=== PATIENT | female | born 1975 | race African-American/Black ===

== ENCOUNTER 2023-01-08 09:53 | Emergency (ER) | payer BC, OTHER, SELFPAY ==
[2023-01-08] MEDS ORDERED: EMTRICITABINE 200MG/TENOFOVIR 300MG PO ONE (10:22)
[2023-01-08] MEDS ORDERED: RALTEGRAVIR POTASSIUM 400 MG TAB PO ONE (10:22)
[2023-01-08 10:23] VITALS: BP 105/67; PULSE 79; RESP 16; TEMP 98; BMI 27.4
[2023-01-08] MEDS ORDERED: DIPHTH,PERTUSS(ACELL),TET 0.5 ML DISP.SYRIN IM ONE ×2 (10:35→10:42)
[2023-01-08] MEDS ORDERED: HIV POST EXPOSURE PROPHYLAXIS KIT PO ONE (10:36)
[2023-01-08 11:59] LABS: HEMOGLOBIN 13.2 G/dL (10.7-15.3); MCH 28.4 pg (25.7-33.7); MEAN CELL VOLUME 86.2 fl (80-96); MEAN PLT VOLUME 6.9 fl (7.5-11.1); PLATELET COUNT 312.4 10^3/uL (134-434); RBC 4.64 10^6/uL (3.60-5.2); RDW 15.2 % (11.6-15.6); WHITE BLOOD COUNT 5.8 10^3/uL (4.0-10.8)
[2023-01-08 12:06] LABS: ALBUMIN 4.2 g/dl (3.4-5.0); BILIRUBIN,TOTAL 0.5 mg/dl (0.2-1); BLOOD UREA NITROGEN 10.5 mg/dl (7-18); CALCIUM 9.2 mg/dl (8.5-10.1); POTASSIUM 4.2 mmol/L (3.5-5.1); SGOT/AST 22.9 U/L (15-37); SGPT/ALT 21.7 U/L (7-52); TOT PROT 6.6 g/dl (6.4-8.2)
[2023-01-08 13:01] LABS: PLATELET ESTIMATE ADEQUATE
[2023-01-08 16:03] LABS: HEPATITIS B SURFACE AG MATERN NON-REACTIVE (NONREACTIVE)
[2023-01-08 16:31] LABS: HIV INTERPRETATION NEGATIVE (NEGATIVE)
== END 2023-01-08 11:09 | disposition home or self-care (01) ==
LOC: FER 09:53
PROC: 3E0234Z Introduction of Serum, Toxoid and Vaccine into Muscle, Percutaneous Approach (ICD-10-PCS; principal; 2023-01-08)
DX: S61.231A Puncture wound without foreign body of left index finger without damage to nail, initial encounter (principal); W26.1XXA Contact with sword or dagger, initial encounter; Y64.1 Contaminated medical or biological substance, injected or used for immunization; Y92.119 Unspecified place in children's home and orphanage as the place of occurrence of the external cause
CPT/HCPCS: 36415; 80053; 84702; 85025; 86803; 87340; 87389; 87517; 90715; 99283-25